=== PATIENT | female | born 1980 | race African-American/Black ===

== ENCOUNTER 2017-07-16 12:15 | Emergency (ER) | payer BC, OTHER | END 2017-07-16 12:50 | disposition home or self-care (01) | LOC: MADERS 12:15 | DX: J06.9 Acute upper respiratory infection, unspecified (principal) | CPT/HCPCS: 99283 ==

== ENCOUNTER 2023-10-03 00:32 | Emergency (ER) | payer BC | END 2023-10-03 01:19 | disposition home or self-care (01) | LOC: MADERS 00:32 | DX: R60.0 Localized edema (principal) | CPT/HCPCS: 99283 ==